=== PATIENT | female | born 1990 | race Caucasian/White ===

== ENCOUNTER → 2018-05-03 16:41 | Observation (INO) ==
--- NOTE | 2018-05-03 17:10 | OB/GYN Progress Note ---
Date of Encounter: 05/03/18 Time of Encounter: 17:08 - Assessment and Plan (1) 39 weeks gestation of Current Visit: Yes Status: Acute (2) Irregular uterine contractions Current Visit: Yes Status: Acute Labor warnings given. No cervical change and no regular contractions on monitor. Induction of labor scheduled on 05/06 if undelivered by that time. Informed consent obtained (3) and not yet delivered in third trimester Current Visit: Yes Status: Acute Patient receiving current care Subjective - Subjective Principal diagnosis: 39 weeks w/ ctx Interval history: Patient presents for evaluation of labor. Fetus is active. She reports irregular contractions and is uncomfortable with them. After monitoring, contractions resolved and patient comfortable Antepartum ROS: new complaints, movement normal, contractions, no loss of fluid, no vaginal bleeding Objective - Vital Signs Vital Signs: Afebrile, vital signs stable - Exam FHR: category 1 Auscultation: bilateral: normal Abdomen: Present: soft, gravid. Absent: tenderness Cervical dilation: 4 Cervix effacement: 70 station: -2 - Allied health notes Allied health notes reviewed: nursing
== END | disposition home or self-care (01) ==
LOC: 1NENULAB
PROVIDERS: ADMIT Registered Nurse; ATTEND Registered Nurse

== ENCOUNTER 2018-05-06 08:00 | Inpatient (IN) ==
[2018-05-06] MEDS ORDERED: miSOPROStol 25 MCG TABLET PO PRN (08:10)
[2018-05-06] MEDS ORDERED: Naloxone 0.4 MG/ML INJ IVP PRN (08:11)
[2018-05-06] MEDS ORDERED: Famotidine 20 MG/2 ML VIAL IVP PRN (08:11)
--- NOTE | 2018-05-06 09:07 | OB/GYN History & Physical ---
Date of Encounter: 05/06/18 Time of Encounter: 09:04 Assessment and Plan (1) 39 weeks gestation of Current visit: Yes Status: Acute The patient is 39 weeks and has received care with documented dating from first trimester. She is requesting induction of labor due to irregular contractions with dilation at 4 cm. Pain management per patient request (2) Irregular uterine contractions Current visit: Yes Status: Acute The patient has had irregular contractions, significant enough that she came in for labor evaluation 3 days ago. She has not made cervical change. She will be augmented with Cytotec today with anticipation of a vaginal delivery History of Present Illness Chief complaint: IOL 39.3 wks HPI: Ms. Vincent is a 27 year old female at 39 weeks and 3 days with an EDC of 05/10/18 by LMP and confirmed by ultrasound first trimester who presents for an induction of labor. She has had a prolonged latent phase and was in labor and delivery on 05/03 for labor evaluation but no cervical change was made. She reports continued contractions irregularly since that time, some more uncomfortable. She has had no vaginal bleeding or loss of fluid. Fetus has been active. She reports no headaches, blurred vision or epigastric pain. She has had no significant lower extremity edema. Her was significant for a family history of a congenital heart defect but no affected children. A cardiac echo was not a covered benefit by her insurance coverage. She did have a normal anatomy scan. Her blood type is A+, she is rubella immune, varicella immune and GBS negative. She had an ultrasound at 36 weeks which reported a 6 lbs. 7 oz. fetus at the 70th percentile with an ISHAN of 12.6. Informed consent has been obtained for induction of labor. Past Med Surg Social Fam HX - Past Medical History Source: patient, old records reviewed Medical history: no medical history Psychiatric history: no psych history - Past Surgical History Surgical History: other Additional surgical history: knee surgery - Social History Smoking Status: Never smoker Smokeless Tobacco Status: No Alcohol use: none Drug use: none Current living situation: Home - Independent Activity Level: Independent ambulation Recent Out of Country Travel Within the Last 8 Weeks: No Exposure or Possible Exposure to Illness During Travel: No - Family History Mother Adopted: No Living Status: Still Living Hx Family Cardiac Disorders: No Hx Family Respiratory Disorders: No Hx Family Cancer: No Hx Family GI Disorders: No Hx Family Genitourinary Disorders: No Hx Family Endocrine Disorder: No Hx Family Musculoskeletal Disorders: No Hx Family Neuromuscular Disorders: No Hx Family Neurologic Disorders: No Hx Family HEENT Disorders: No Hx Family Autoimmune Disorders: No Hx Family Reproductive Disorders: No Hx Family Psychosocial Disorders: No Hx Family Medical Disorders: No Obstetrical History - Pregnancies : 4 Term: 2 : 0 Ab's: 1 Livin - History/Complications History/Complications: IUGR w/ first , largest weight 8 lbs. 6 oz. Medications and Allergies Vit/FA 1 tab PO DAILY 06/27/15 [History] Docusate [Colace] 100 mg PO BID #30 capsule 06/29/15 [Rx] Ibuprofen [Motrin] 600 mg PO TID PRN #60 tablet 06/29/15 [Rx] Vit/FA 1 each PO DAILY tablet 06/29/15 [Rx] 3 Allergy/AdvReac Type Severity Reaction Status Date / Time No Known Allergies Allergy Verified 06/27/15 16:19 Review of System OB All systems PM: reviewed and no additional remarkable complaints except as stated - Constitutional Constitutional ROS IM: weight gain - Ears Ears: bilateral: tinnitus (Seeing ENT) - Gastrointestinal Gastrointestinal: cramping Exam - Vital Signs Vital signs: Afebrile, vital signs stable. heart tones 140s baseline, CAT 1. Chauncey shows irregular contractions - Constitutional Constitutional: well developed, well nourished, no acute distress, average body habitus - HEENT HEENT: Normocephaly, Mucus Membranes Moist - Neck Neck exam: normal inspection, supple - Lungs Respiratory exam: CTAB - Cardiovascular Cardiovascular exam: RRR - Breasts Breast: bilateral: normal (Gravid bilaterally) - Abdomen Abdomen: Present: bowel sounds normal, gravid (Fundal height 40 cm), non tender - Extremities Extremities exam: normal inspection, warm Deep Tendon Reflex Grade: 2+ Normal - Vulva Vulva: bilateral: normal - Vagina Vagina: Present: normal moisture - Cervix Dilation: 4 Effacement: 70 Station: -3 (vtx, bladder full) - Anus/Rectum Anus/Rectum: Present: normal perianal skin Results All other labs normal. - VTE Reasons for not Prescribing Prophylaxis: Treatment not Indicated - Low risk for VTE
[2018-05-06 09:35] LABS: Basophils % 0.3 %; Eosinophils # 0.1 K/mcL (0.0-0.6); Eosinophils % 0.5 %; Hematocrit 31.8 % (35.3-44.9); Hemoglobin 10.3 g/dL (11.5-15.4); Immature Granulocytes % 3.2 % (0-4); Lymphocytes # 1.3 K/mcL (0.6-4.6); Lymphocytes % 14.2 %; Mean Corpuscular HGB Conc 32.4 g/dL (31.6-35.5); Mean Corpuscular Hemoglobin 28.3 pg (28.0-33.3); Mean Corpuscular Volume 87.4 fL (83.0-100.0); Mean Platelet Volume 11.4 fL (9.4-12.4); Monocytes # 0.8 K/mcL (0.0-1.3); Neutrophils # 6.9 K/mcL (1.6-8.9); Platelet Count 206 K/mcL (140-400); Red Blood Count 3.64 M/mcL (3.82-4.97); Red Cell Distribution Width 13.4 % (11.5-14.5); Segmented Neutrophils % 73.8 %
[2018-05-06] MEDS: D5% in Lactated Ringers 1,000 ML IVC SCH ×2 (09:38→17:27)
[2018-05-06 09:55] LABS: Amphetamine Screen,Urine Negative ng/mL (Cutoff=1000); Barbiturate Screen,Urine Negative ng/mL (Cutoff=200); Benzodiazepines Screen,Urine Negative ng/mL (Cutoff=200); Cannabinoid Screen,Urine Negative ng/mL (Cutoff = 50); Cocaine Screen,Urine Negative ng/mL (Cutoff= 300); Opiate Screen,Urine Negative ng/mL (Cutoff=300); Phencyclidine Screen,Urine Negative ng/mL (Cutoff=25)
--- NOTE | 2018-05-06 13:13 | OB Labor Progress Note ---
Date of Encounter: 05/06/18 Time of Encounter: 13:11 Labor Progress Note - Subjective Subjective: The patient is uncomfortable after her Cytotec and not been appreciating any regular contractions - Vital Signs Vital Signs: Afebrile, vital signs stable - Cervix Cervix: 5/70/-2, vertex well applied with bulgy bag of water - Heart Tones Heart Tones: 140s baseline, CAT 1 - [place]: External toco shows irregular contractions with no regular pattern - Interventions Interventions: 39 week 3 day IUP for induction of labor - Plan Plan: Amniotomy, clear fluid seen. IUPC placed
[2018-05-06] MEDS ORDERED: Oxytocin 20 units/ LR 1000 mL 20 UNIT/1,000 ML BAG IVC ONE ×2 (13:23→20:23)
[2018-05-06] MEDS ORDERED: Oxytocin 20 units/ LR 1000 mL 20 UNIT/1,000 ML BAG IVC SCH ×2 (13:30→20:18)
[2018-05-06] MEDS ORDERED: Bupivacaine-MPF 0.25% 10 ML VIAL EP ONE (14:18)
[2018-05-06] MEDS ORDERED: *HR* FentaNYL (PF) 100 MCG/2 ML VIAL EP ONE (14:18)
[2018-05-06] MEDS ORDERED: Bupivacaine-MPF 0.25% 10 ML VIAL ONE (14:19)
[2018-05-06] MEDS ORDERED: *HR* FentaNYL (PF) 100 MCG/2 ML VIAL ONE (14:19)
[2018-05-06] MEDS ORDERED: Epidural Premix (fent/bupiv) 110 ML EP SCH (14:30)
--- NOTE | 2018-05-06 14:57 | Anesthesia Evaluation PreOp ---
Date of Encounter: 05/06/18 Time of Encounter: 14:20 - Past History Planned Operation: JOHN Cardiac History: Denies any Significant Hx Pulmonary History: Denies Any Significant HX BALLET MASTER/MISTRESS History: Denies Any Significant HX Other Medical History: Denies Any Significant HX Anesthesia History: No Prior Anesthetic Complications (previous JOHN x 2 w/out issues; denies personal and familiy h/o GA complications) : Yes Test: Positive Alcohol Use: none Drug use: none Medications and Allergies Vit/FA 1 tab PO DAILY 06/27/15 [History] 3 Allergy/AdvReac Type Severity Reaction Status Date / Time No Known Allergies Allergy Verified 06/27/15 16:19 - Meds/Allergy Pre-op Review Medications Reviewed: Yes Allergies Reviewed: Yes Beta Blockers on Current Med List: No Anesthesia Results - Labs 05/06/18 09:15 Anesthesia Exam 109/59, HR 70, RR 16 O2 Sat Height 1.7 m Height 1.7 m Weight 91.3 g NPO (# of Hours): solids > 7hr Pain Scale: 8 Pain Scale Used: Numeric (1 - 10) - HEENT Pupil (Motor): Pupils equal Mallampati: II Teeth: Normal Oral Opening: Greater than 3 - BALLET MASTER/MISTRESS LOC: Oriented BALLET MASTER/MISTRESS Motor: Normal RUE, Normal LUE, Normal RLE, Normal LLE, Normal Face BALLET MASTER/MISTRESS Sensory: Normal: RUE, LUE, RLE, LLE, Face - Cardiac Rhythm: Regular Murmur: None - Pulmonary Breath Sounds: bilateral Clear Respiratory Effort: Symmetrical Anesthesia Assess/Plan ASA Score: 2 Modified Sidney Scale for Level of Consciousness: Cooperative, oriented, and tranquil Anesthetic Plan: Regional Autologous Blood: No Monitoring Plan: Standard Monitors Recovery Plan: Other
--- NOTE | 2018-05-06 15:01 | Anesthesia Procedures ---
Date of Encounter: 05/06/18 Time of Encounter: 14:57 Procedures: Anesthesia - Epidural/Spinal Patient ID/Chart reviewed: Yes Patient examined: Yes OB Eval: Gestational age: 39 weeks 3 days OB Eval: : 4 OB Eval: Hx Para: 2 OB Eval: Contractions: Non-stressed pattern Consent Obtained: Yes Supplemental Oxygen: None/Room Air Site Prep: Aseptic Technique, Sterile prep and drape, Povidone-Iodine 1% Patient position: upright Local Anesthetic: Lidocaine 1% Amount of Local Anesthetic used: 3 Touhy Needle Gauge: 18 Touhy Needle Depth (cm): 5 Catheter Depth at Skin (cm): 10 Test Dose (1.5% Lido + Epi): Volume given (mls): 5 Test Dose Result: Negative Loading Dose: 0.25% Marcaine (mls): 5 Loading Dose: Fentanyl (mcg): 100 Loading Dose Administered: Thru Catheter Infusion Med: 0.125% Bupivacaine w/ 2 mcg/ml Fentanyl Infusion Rate (mls/hr): 14 (w/ demand bolus of 5mL q30min PRN) Catheter Secured in Place: Tegaderm, Tape Interspace Used: L3-L4 Loss of Resistance (KENNEDY): Yes Blood: No CSF: No Paresthesia: No Procedure: successful on 1st attempt; patient tolerated well; VSS Vitals + FHT's: Please see Abby HAIRSTON's electronic records for VS entry
--- NOTE | 2018-05-06 17:18 | OB Labor Progress Note ---
Date of Encounter: 05/06/18 Time of Encounter: 17:16 Labor Progress Note - Subjective Subjective: Patient comfortable with epidural - Vital Signs Vital Signs: The patient is comfortable with an epidural - Cervix Cervix: 8/100/-1 vtx - Heart Tones Heart Tones: 130s baseline, CAT 1 - [place]: Every 2-3 minutes on 8 milliunits Pitocin averaging 30 mmHg - Interventions Interventions: 39 week 3 day IUP for induction of labor - Plan Plan: Patient repositioned for severe left lateral with right leg elevation. Continue close monitoring
--- NOTE | 2018-05-06 18:10 | OB/GYN Procedure Note ---
Delivery - Delivery Date: 05/06/18 Provider: Sandra Mccullough Intrapartum events: none Delivery induction: misoprostol Delivery augmentation: rupture of membranes, pitocin Delivery monitor: external FHT, external uterine, internal uterine Anesthesia: epidural Quantitated Blood Loss: 200 - (s) Infant A Infant Delivery Date: 05/06/18 Delivery Time: 17:43 Presentation: vertex Position: MELIA Route of delivery: Gender: Female Viability: Viable Pounds: 8 Ounces: 4 Weight Gram: 3.75 kg at 1 minute: 9 at 5 mins: 9 Shoulder Dystocia: not encountered Specimens collected: cord blood Placenta: spontaneous Cord: 3 umbilical vessels - Repair Episiotomy: none Laceration Description: Periurethral (bilateral superficial) - Complications Delivery complications: none Delivery comments: The patient was complete and pushing with epidural anesthesia with a spontaneous vaginal delivery in the MELIA position of a vigorous female infant weighing 8 lbs.4 oz. with Apgars of 9 at 1 minute and 9 at 5 minutes. was placed on the maternal abdomen. The cord was clamped and cut after pulsations ceased. Cord blood obtained. The placenta was delivered spontaneous and intact. Superficial bilateral periurethral lacerations were hemostatic and not repaired. Perineum intact. Estimated blood loss 200 mL, complications none. Both mother and were stable in LDR. - Disposition Mom disposition: stable in LDR disposition: stable in LDR
[2018-05-06] MEDS ORDERED: Acetaminophen 325 MG TABLET PO PRN (20:18)
[2018-05-06] MEDS ORDERED: Rho Immune Globulin 1,500 UNIT SYRINGE IM PRN (20:18)
[2018-05-06] MEDS ORDERED: Benzocaine/Menthol 56 GM AEROSOL SPRAY TP PRN (20:18)
[2018-05-06] MEDS ORDERED: Sennosides 8.6 MG TABLET PO PRN (20:18)
[2018-05-06] MEDS: Ibuprofen 600 MG TABLET PO SCH (23:45)
[2018-05-07] MEDS: Ibuprofen 600 MG TABLET PO SCH ×2 (06:25→08:26)
[2018-05-07] MEDS ORDERED: Prenatal Vit/FA 1 EACH TABLET PO SCH (09:00)
--- NOTE | 2018-05-07 10:25 | Discharge Summary ---
Date of Encounter: 05/07/18 Time of Encounter: 10:18 - Discharge Diagnosis (1) Term delivered Priority: Primary Status: Acute Comments: Doing well. States voiding and ambulating without difficulty. Tolerating regular diet. Having mild abdominal cramping that is well controlled with Ibuprofen. Lochia light and without clots. in room, states well. Desires to be discharged today. - Discharge Medications Prescriptions: Ibuprofen [Motrin] 600 mg PO Q6HR #30 tablet Docusate [Colace] 100 mg PO BID #20 capsule Home Medications: Vit/FA 1 tab PO DAILY 06/27/15 [History] Acetaminophen [Tylenol] 650 mg PO Q6HR PRN tablet 05/07/18 [Rx] Benzocaine/Menthol Pine [Dermoplast Pine] 1 appl TP QID PRN aerosol 05/07/18 [Rx] Docusate [Colace] 100 mg PO BID #20 capsule 05/07/18 [Rx] Ibuprofen [Motrin] 600 mg PO Q6HR #30 tablet 05/07/18 [Rx] Allergies/Adverse Reactions: 3 Allergy/AdvReac Type Severity Reaction Status Date / Time No Known Allergies Allergy Verified 06/27/15 16:19 Data Procedures and tests throughout hospitalization: Laboratory Tests 05/06/18 05/06/18 09:15 09:15 WBC 9.4 RBC 3.64 L Hgb 10.3 L Hct 31.8 L MCV 87.4 MCH 28.3 MCHC 32.4 RDW 13.4 Plt Count 206 MPV 11.4 Immature Gran % 3.2 Seg Neutrophils % 73.8 Lymphocytes % 14.2 Monocytes % 8.0 Eosinophils % 0.5 Basophils % 0.3 Neutrophils # 6.9 Lymphocytes # 1.3 Monocytes # 0.8 Eosinophils # 0.1 Basophils # 0.0 Urine Opiates Screen Negative Ur Barbiturates Screen Negative Ur Phencyclidine Scrn Negative Ur Amphetamines Screen Negative U Benzodiazepines Scrn Negative Urine Cocaine Screen Negative U Marijuana (THC) Screen Negative Date of admission: 05/06/18 08:03 Primary care physician: Raulito Tenorio DO Consults: 05/06/18 20:18 Consult to [employer] Recausticizing Operator [CONS] Routine Comment: Vaginal delivery, consult needed Discharging clinician: Ilana Del Castillo Anticipated date of discharge: 05/07/18 - Patient Status Disposition: Home, Self-Care Condition: Good Functional capacity at discharge: independent ambulation Overall status at discharge: patient is progressing back to baseline - Discharge Instructions Follow Up With: Raulito Tenorio DO [Primary Care Provider] - Sandra Mccullough MD [Partnered Physician] - - Diet and Activity Activity: resume usual activities as tolerated Diet: advance to your usual diet Hospital Course Reason for admission: induction of labor, IUP at term Delivery: Episiotomy: none Laceration: none Other procedures: none complications: none Discharge diagnosis: IUP at term delivered [place] baby: female Time spent discussing smoking cessation with patient: 3 to 10 minutes Time Attestation: Total time spent providing and/or coordinating discharge services: Time Spent: Less than 30 minutes Exam - Constitutional Vitals: Temp Pulse Resp BP Pulse Ox 98.1 F 72 12 116/75 97 05/07/18 07:39 05/07/18 07:39 05/07/18 07:39 05/07/18 07:39 05/07/18 07:39 General appearance IM: cooperative, A&O X 3, pleasant, answers questions appropriately - Respiratory Respiratory exam: Present: CTAB - Cardiovascular Cardiovascular exam IM: Present: RRR - GI/Abdominal GI/Abdominal exam IM: normal bowel sounds - Uterine Tone: Firm Uterus Position: At Umbilicus, Midline - Extremities Exam Extremities exam IM: Present: normal inspection, radial pulses palpable and symmetrical - Neurological Exam Neurological exam: alert, oriented X3, reflexes normal
[2018-05-07 16:32] VITALS: BP 118/77
== END 2018-05-07 18:50 | disposition home or self-care (01) | DRG 775 ==
LOC: 1NENULAB 08:03 → 1NENUOBS 20:17
PROVIDERS: ADMIT Obstetrics & Gynecology; ATTEND Obstetrics & Gynecology

== ENCOUNTER 2021-10-16 07:51 | Inpatient (IN) ==
[2021-10-16] MEDS ORDERED: *HR* Nalbuphine 10 MG/ML AMPUL IV PRN (08:00)
[2021-10-16] MEDS ORDERED: Famotidine 20 MG/2 ML VIAL IVP PRN (08:00)
[2021-10-16] MEDS ORDERED: Naloxone 0.4 MG/ML INJ IVP PRN (08:00)
[2021-10-16] MEDS ORDERED: Lidocaine 1% 20 ML MDV ID PRN (08:00)
[2021-10-16] MEDS ORDERED: Metoclopramide 10 MG/2 ML VIAL IVP PRN (08:00)
[2021-10-16] MEDS ORDERED: Azithromycin 500 MG in 0.9 % Sodium Chloride 250 ML IVPB PRN (08:00)
[2021-10-16] MEDS ORDERED: Ringers Solution, Lactated 1,000 ML IVC SCH (08:00)
[2021-10-16] MEDS ORDERED: Oxytocin 20 units/ LR 1000 mL 20 UNIT/1,000 ML BAG IVC SCH ×2 (08:00→23:09)
[2021-10-16] MEDS ORDERED: Ondansetron 4 MG/2 ML VIAL IVP PRN (08:00)
[2021-10-16 08:56] LABS: Amphetamine Screen,Urine Negative ng/mL (Cutoff=1000); Barbiturate Screen,Urine Negative ng/mL (Cutoff=200); Benzodiazepines Screen,Urine Negative ng/mL (Cutoff=300); Cannabinoid Screen,Urine Negative ng/mL (Cutoff = 50); Cocaine Screen,Urine Negative ng/mL (Cutoff= 300); Opiate Screen,Urine Negative ng/mL (Cutoff=300); Phencyclidine Screen,Urine Negative ng/mL (Cutoff=25)
[2021-10-16 09:00] LABS: Basophils % 0.2 %; Eosinophils # 0.1 K/mcL (0.0-0.6); Eosinophils % 0.7 %; Hemoglobin 11.5 g/dL (11.5-15.4); Immature Granulocytes % 2.1 % (0-4); Lymphocytes # 1.3 K/mcL (0.6-4.6); Lymphocytes % 14.1 %; Mean Corpuscular HGB Conc 32.9 g/dL (31.6-35.5); Mean Corpuscular Hemoglobin 29.3 pg (28.0-33.3); Mean Corpuscular Volume 89.1 fL (83.0-100.0); Mean Platelet Volume 11.3 fL (9.4-12.4); Monocytes # 0.7 K/mcL (0.0-1.3); Monocytes % 7.8 %; Neutrophils # 7.1 K/mcL (1.6-8.9); Platelet Count 226 K/mcL (140-400); Red Blood Count 3.93 M/mcL (3.82-4.97); Red Cell Distribution Width 13.2 % (11.5-14.5); Segmented Neutrophils % 75.1 %; White Blood Count 9.5 K/mcL (4.3-11.1)
[2021-10-16] MEDS ORDERED: EPHEDrine 50 MG/ML VIAL IVP PRN (09:27)
[2021-10-16] MEDS ORDERED: Epidural Premix (fent/bupiv) 110 ML EP SCH (09:30)
[2021-10-16 09:33] LABS: Influenza A PCR Negative (Negative); Influenza B PCR Negative (Negative); Resp. Syncytial Virus PCR Negative (Negative); SARS-CoV-2 by PCR (In House) Negative (Negative)
[2021-10-16] MEDS ORDERED: Acetaminophen 325 MG TABLET PO SCH (23:09)
[2021-10-16] MEDS ORDERED: Measles/Mumps/Rubella Vacc 0.5 ML VIAL SQ PRN (23:09)
[2021-10-16] MEDS ORDERED: Lanolin 7 G OINT...G. TP PRN (23:09)
[2021-10-16] MEDS ORDERED: Ondansetron ODT 4 MG TAB.RAPDIS SL PRN (23:09)
[2021-10-16] MEDS ORDERED: Benzocaine/Menthol 56 GM AEROSOL SPRAY TP PRN (23:09)
[2021-10-16] MEDS ORDERED: Rho Immune Globulin 1,500 UNIT SYRINGE IM PRN (23:09)
[2021-10-16] MEDS: Ibuprofen 600 MG TABLET PO SCH (23:30)
[2021-10-17 04:57] VITALS: BP 105/69; O2SAT 95
[2021-10-17] MEDS: Ibuprofen 600 MG TABLET PO SCH (08:33)
[2021-10-17] MEDS ORDERED: Prenatal Vit/FA 1 EACH TABLET PO SCH (09:00)
[2021-10-17 09:08] VITALS: PULSE 142; TEMP 97.8
== END 2021-10-17 15:38 | disposition home or self-care (01) | DRG 807 ==
LOC: 1NENULAB 07:51 → 1NENUOBS 22:53
PROVIDERS: ADMIT Obstetrics & Gynecology; ATTEND Obstetrics & Gynecology